=== PATIENT | male | born 1965 | race Caucasian/White ===

== ENCOUNTER 2019-02-09 08:09 | Day surgery (SDC) | payer OTHER, SELFPAY ==
--- NOTE | 2019-02-09 | PATH_ITS ---
[facility] Accession Number: [id number] . 01 Material submitted: . PART A: POLYP AT 20CM PART B: BIOPSY AT 15CM . 02 Diagnosis: A. Biopsy, Colon Polyp at 20 cm: Hyperplastic polyp involving single biopsy fragment. . B. Biopsy, Colon Polyp at 15 cm: Hyperplastic polyp. MRV/02/10/2019 . 02 Electronically signed: . Maykel Gutierrez MD, Pathologist NPI- [id number] . 01 Gross description: . Part A: POLYP AT 20CM: Received in formalin are 2 fragment(s) of brandon, soft tissue measuring 0.3 x 0.3 x 0.1 cm to 0.5 x 0.5 x 0.4 cm which is entirely submitted and submitted entirely in 1 cassette(s) Part B: BIOPSY AT 15CM: Received in formalin is 1 fragment(s) of brandon, soft tissue measuring 0.4 x 0.4 x 0.3 cm which is entirely submitted and submitted entirely in 1 cassette(s) /DMC /DMC . 02 Pathologist provided ICD-10: K62.1 . 02 CPT . 088966, [id number] Performed at: 01 [facility] [address] [facility], [place], [place] [id number] MD Andrew Luther MD Phone: [phone] Performed at: 02 [facility] [address] [place], [place] [id number] MD Elizabeth Osei MD Phone: [phone]
[2019-02-09 08:29] VITALS: BMI 33.3
[2019-02-09 08:37] VITALS: BP 128/86; PULSE 80; RESP 20; TEMP 37; O2SAT 97
--- NOTE | 2019-02-09 10:20 | PM.HP.1 ---
History of Present Illness Date Patient Seen: 02/09/19 Time Patient Seen: 10:20 Chief complaint: 92295 SCREENING COLONOSCOPY Narrative: Very pleasant 53-year-old gentleman who presents for his 1st screening colonoscopy. He denies any problems or symptoms related to function of his GI tract. He says he needs colonoscopy as part of a health maintenance program. Patient History Social History household members: spouse Family & Social History Social History: household members spouse Meds Home Medications Medication Instructions Recorded Confirmed Type ASCORBIC ACID (VITAMIN C) 500 mg PO Q DAY #0 03/21/12 02/09/19 History CA PANTOTHENATE/FOLIC ACID/VIT 1 tab PO QDAY #0 03/21/12 02/09/19 History (MULTIVITAMIN) COENZYME Q10 (COQ10) 150 mg PO Q DAY #0 03/21/12 02/09/19 History Glucosamine Sulfate (#GLUCOSAMINE) 500 mg PO Q DAY #0 03/21/12 02/09/19 History VITAMIN D (Vitamin D3) 2,000 unit PO QDAY #0 03/21/12 02/09/19 History Levoxyl 200 mcg PO DAILY 02/09/19 02/09/19 History losartan 50 mg PO BEDTIME 02/09/19 02/09/19 History Allergies Allergy/AdvReac Type Severity Reaction Status Date / Time No Known Drug Allergies Allergy Verified 02/09/19 08:45 Review of Systems Review of Systems All systems reviewed & are unremarkable except as noted in HPI and below Exam Vital Signs (past 8 hours): - 02/09/19 08:37 Temperature 98.6 F Pulse Rate 80 Respiratory Rate 20 Blood Pressure 128/86 Pulse Oximetry 97 Oxygen Delivery Method Room Air Narrative Exam Narrative: Very pleasant gentleman in no distress HEENT: Normocephalic and atraumatic, pupils equal round reactive to light accommodation with anicteric sclera Lungs: Clear auscultation bilaterally Heart: Regular rate and rhythm Abdomen: Soft, rotund, active bowel sounds Extremities: Warm and well perfused and without edema Assessment & Plan Assessment & Plan narrative: 1 volt 53-year-old man here for his 1st screening colonoscopy. We discussed the risks and benefits of the procedure the patient expressed a desire to complete it today. He is ASA 2 due to his history of mild hypertension and obesity with a BMI of 33
[2019-02-09] MEDS: MIDAZOLAM 5 MG/5 ML VIAL IV (10:29)
[2019-02-09] MEDS: fentaNYL 250 MCG/5 ML INJ IV (10:31)
--- NOTE | 2019-02-09 10:46 | P.OP_ITS ---
Operative Date/Time/Diagnoses Date of procedure: 02/09/19 Time of procedure: 10:43 Pre-op diagnosis: Screening Post-op diagnosis: same Procedure & Clinicians Procedure: Colonoscopy to the cecum with polypectomy x2 Same procedure as scheduled: Yes Indications: No prior colonoscopy Surgeon: Mai Arteaga Anesthesia Type: Sedation (Versed 9 mg, fentanyl 250 micro g) Operative Notes Findings: 1. Excellent prep 2. 5 mm polyp at 20 cm from the anal verge removed with snare and cautery 3. 1-2 mm polyp at 15 cm from the anal verge removed with cold forceps 4. Minimal diverticulosis with scattered small pockets limited to the sigmoid region 5. Grade 1-2 internal hemorrhoids 6. Otherwise normal mucosa Closure Type: not applicable Specimen(s): other (1.-polyp at 20 cm removed with snare cautery; 2-polyp at 15 cm removed with cold forceps) Estimated Blood Loss (mL): 1 Procedure in detail: After obtaining informed consent, the patient was brought to the GI suite and placed in the left lateral decubitus position on the examination table. After placement of appropriate monitors, the patient was gi dulce incremental doses of Versed and Fentanyl until an appropriate level of sedation was achieved. A time out was held per SCOAP protocol. A digital rectal examination was performed and did not reveal any masses or obstructing lesions. The colonoscope was gently passed into the patient's anus and the entire colon navigated to the level of the cecum with minimal difficulty. Once in the cecum, the scope was withdrawn being sure to go before and beyond all mucosal folds and prominences and get an excellent examination. The findings are noted above. At the level of the rectal vault, the scope was retroflexed and the internal anal canal was examined. The scope was straightened and air aspirated from the colon. The instrument was removed from the patient's body and the procedure was concluded. The patient was allowed to awaken from sedation without difficulty and taken to the post-anesthesia care unit in good condition. Total sedation time was 21 minutes Total withdrawal time was 11 minutes 40 seconds Complications: none Condition: stable Disposition: PACU Plan for aftercare: 1. Discharge to home 2. Plan for next colonoscopy in 5 years or as clinically indicated 3. We will contact you with pathology results and any additional recommendations
[2019-02-09 10:47] VITALS: BP 106/72; PULSE 77; RESP 12; TEMP 36.8; O2SAT 99
[2019-02-09 10:52] VITALS: BP 115/83; PULSE 80; RESP 11; O2SAT 98
[2019-02-09 11:00] VITALS: BP 122/75; PULSE 74; RESP 15; TEMP 36.4; O2SAT 98
[2019-02-09 11:06] VITALS: BP 114/76; PULSE 64; RESP 16; TEMP 36.3; O2SAT 99
== END 2019-02-09 11:16 | disposition home or self-care (01) ==
PROVIDERS: Family Provider Family Medicine; PCP Family Medicine; Visit Provider Surgery
PROC: 0DJD8ZZ Inspection of Lower Intestinal Tract, Via Natural or Artificial Opening Endoscopic (ICD-10-PCS; CPT 45378; principal; 2019-02-09 09:45)
DX: Z12.11 Encounter for screening for malignant neoplasm of colon (principal); K57.30 Diverticulosis of large intestine without perforation or abscess without bleeding; K64.1 Second degree hemorrhoids; D12.6 Benign neoplasm of colon, unspecified; I10 Essential (primary) hypertension; E66.9 Obesity, unspecified; Z68.33 Body mass index [BMI] 33.0-33.9, adult
CPT/HCPCS: 45385; 45380; 99152; J2250; J3010

== ENCOUNTER → 2022-09-18 14:36 | Outpatient (CLI) | payer OTHER, SELFPAY ==
--- NOTE | 2022-09-18 14:37 | DI.CT.S_ITS ---
PROCEDURE: CT SOFT TISSUE NECK W CON INDICATIONS: LEFT cervical lymphadenopathy TECHNIQUE: Helical axial CT of the neck was obtained after intravenous contrast injection and reformatted in multiple planes. Radiation dose reduction was achieved utilizing automated exposure control and/or weight-based dosing. COMPARISON: None. FINDINGS: Skull Base: The visualized intracranial contents, skull, and orbits are unremarkable. 1.4 cm right maxillary sinus retention cyst. Pharynx and Larynx: The nasopharyngeal airway is patent and midline. Parapharyngeal soft tissues including palatine tonsils and base of the tongue are normal. Retropharyngeal space unremarkable. Normal appearance of the false and true vocal cords. Muscles and Fascial Planes: Fascial planes are well maintained. No abscess or mass lesion. Lymph Nodes: Left level 2A lymph node corresponds with the palpable abnormality measuring 1.5 cm in short axis 3.4 cm in length additional smaller nonenlarged nodes are noted in the deep cervical chains bilaterally. Vasculature: Unremarkable. Submandibular and Parotid Glands: Normal in size and attenuation. Thyroid: Unremarkable. No enlarged or calcified nodules. Bones: No acute fracture. No osteolytic or blastic lesion is evident. Normal bone mineralization. Lung Apices: The visualized lung apices are clear. IMPRESSION: 1. Left level 2A adenopathy corresponds with palpable abnormality. Node would be amendable to ultrasound guided percutaneous biopsy. Approved by: Peter Osorio M.D. on 09/18/2022 at 16:45
== END ==
PROVIDERS: Family Provider Family Medicine; PCP Family Medicine; Referring Provider Surgery; Visit Provider Surgery
DX: R59.0 Localized enlarged lymph nodes (principal); J34.1 Cyst and mucocele of nose and nasal sinus
CPT/HCPCS: 70491; Q9967

== ENCOUNTER → 2022-11-10 07:59 | Outpatient (CLI) | payer OTHER, SELFPAY ==
--- NOTE | 2022-11-10 | PATH_ITS ---
[facility] Accession Number: [id number] No. of containers..01 Tissue . 01 Material submitted: . lymph node - LEFT SUBMANDIBULAR LYMPHNODE . 01 Diagnosis: Left submandibular lymph node, core biopsy: -Core fragments of oncocytic epithelium, bilayered, overlying benign lymphoid tissue, consistent with Warthin tumor. -Negative for atypia and malignancy. [facility] 11/12/2022 1435 Local . 01 Electronically signed: . Antonio Chamorro MD, Pathologist NPI- [id number] . 01 Gross description: . LEFT SUBMANDIBULAR LYMPHNODE: Received in formalin are 2 fragment(s) of brandon, soft tissue measuring 0.3 x 0.1 x 0.1 cm to 0.4 x 0.1 x 0.1 cm submitted entirely in 1 cassette(s) /[facility] 11/10/2022 1927 Local . 01 Pathologist provided ICD-10: D11.9 . 01 CPT . 807830 Specimen Comment: A courtesy copy of this report has been sent to [phone] Performed at: 01 [facility] [address] [place] [address], [place], [place] [id number] MD Andrew Luther MD Phone: [phone]
--- NOTE | 2022-11-10 08:00 | DI.US.S_ITS ---
PROCEDURE: US BIOPSY LYMPH NODE INDICATIONS: LEFT SUBMANDIBULAR LYMPHADENOPATHY TECHNIQUE: The indications, alternatives, benefits, risks, and complications of the procedure were explained to the patient. Written informed consent was obtained and placed in the chart. Real-time sonography was utilized to choose the site for percutaneous lymph node sampling. The skin was prepped and draped in the usual sterile fashion. 1% lidocaine was infiltrated down to the site of interest. A coaxial needle was then advanced into the site of interest under direct sonographic visualization. A biopsy apparatus was then utilized, and core biopsies were obtained. The needle was then withdrawn; a bandage was applied to the biopsy site. COMPARISON: None. FINDINGS: Biopsy site(s): Left neck, retromandibular region Needle: MetaCDN biopsy needle set. 20 gauge Number of passes: 5 Medications: 1% lidocaine for local anaesthesia. Complications: None. IMPRESSION: Successful ultrasound-guided left cervical chain lymph node biopsy, with pathology results pending. Dictated by: Arjun Bee M.D. on 11/10/2022 at 19:23 Approved by: Arjun Bee M.D. on 11/10/2022 at 19:24
== END ==
PROVIDERS: Family Provider Family Medicine; PCP Family Medicine; Referring Provider Surgery; Visit Provider Surgery
DX: R59.0 Localized enlarged lymph nodes
CPT/HCPCS: 38505; 76942

== ENCOUNTER → 2024-09-20 13:52 | Outpatient (CLI) | payer OTHER, SELFPAY ==
--- NOTE | 2024-09-20 13:55 | DI.US.S_ITS ---
PROCEDURE: US ABDOMEN LIMITED INDICATIONS: INFLAMMATION OF VAS DEFERENS TECHNIQUE: Real-time focused scanning was performed of the abdomen, with image documentation. COMPARISON: None. FINDINGS: Scan is performed of the left inguinal canal. At this site, there is an apparent fat containing inguinal hernia, without abnormal vascularity. This measures 4.7 x 1.6 x 2.3 cm. This appears compressible with probe pressure. IMPRESSION: Apparent fat containing left inguinal hernia. Surgical consultation is recommended. If clinically appropriate, a CT through the region with at least IV contrast may also be helpful for further evaluation. Dictated by: Calin Hoffman M.D. on 09/20/2024 at 15:11 Approved by: Calin Hoffman M.D. on 09/20/2024 at 15:12
== END ==
LOC: US 13:54
PROVIDERS: Family Provider Family Medicine; PCP Family Medicine; Referring Provider Family Medicine; Visit Provider Family Medicine
DX: N49.1 Inflammatory disorders of spermatic cord, tunica vaginalis and vas deferens (principal); K40.90 Unilateral inguinal hernia, without obstruction or gangrene, not specified as recurrent
CPT/HCPCS: 76705

== ENCOUNTER → 2024-09-27 06:45 | Outpatient (CLI) | payer OTHER, SELFPAY ==
--- NOTE | 2024-09-27 06:47 | DI.RAD.S_ITS ---
PROCEDURE: XR KNEE RT 3V INDICATIONS: KNEE PAIN TECHNIQUE: 3 views of the knee were acquired. COMPARISON: None. FINDINGS: Bones: No fractures or dislocations. No suspicious bony lesions. Tricompartmental joint space narrowing with associated osteophytosis. Soft tissues: Moderate joint effusion. No suspicious soft tissue calcifications. IMPRESSION: Wcuc-hw-leigjlof tricompartmental osteoarthritis. Kellgren-Adan Grade 2. Moderate knee joint effusion. Dictated by: Jamie Temple M.D. on 09/27/2024 at 9:48 Approved by: Jamie Temple M.D. on 09/27/2024 at 9:50
--- NOTE | 2024-09-27 06:48 | DI.RAD.S_ITS ---
PROCEDURE: XR HIP W PEL IF DONE RT 2V INDICATIONS: HIP PAIN TECHNIQUE: 2 views of the hip were acquired. COMPARISON: None. FINDINGS: Bones: No fractures or dislocations. No suspicious bony lesions. The visualized pelvic ring appears intact. Mild nonuniform joint space narrowing with osteophytic lipping of the acetabulum. Soft tissues: No suspicious soft tissue calcifications or masses. IMPRESSION: No acute bony abnormality. Mild right hip osteoarthritis. Kellgren-Adan Grade 2. Dictated by: Jamie Temple M.D. on 09/27/2024 at 9:46 Approved by: Jamie Temple M.D. on 09/27/2024 at 9:48
--- NOTE | 2024-09-27 07:07 | DI.CT.S_ITS ---
PROCEDURE: CT LUNG LOW DOSE SCREENING INDICATIONS: NICOTINE DEPENDENCE,CIGARETTES TECHNIQUE: Noncontrast 2.0-2.5 mm thick sections acquired from the pulmonary apices to the posterior costophrenic angles. 7 mm thick axial MIP, and 5 mm coronal and sagittal reformats were then acquired. For radiation dose reduction, the following was used: automated exposure control, adjustment of mA and/or kV according to patient size. COMPARISON: None. FINDINGS: Image quality: Diagnostic. Lower Neck: No enlarged lymph nodes. Thyroid: Absent. Axillae: No enlarged lymph nodes. Chest Wall: Unremarkable. Bones: Unremarkable. Lungs and Pleura: No pneumothorax or pleural effusions. A few solid pulmonary micro nodules period index nodule measures 4 x 5 millimeters in the right middle lobe (series 3, image 191). Moderate centrilobular and mild paraseptal emphysema. Heart: Heart size is normal. No pericardial effusion. Thoracic Vessels: The aorta and pulmonary arteries demonstrate normal size. Mediastinum and Bertha: No enlarged lymph nodes. Esophagus: No wall thickening. No hiatal hernia. Upper Abdomen: 3-4 millimeter stone in the superior calyx of the left kidney. Calcified granuloma of the spleen. IMPRESSION: No suspicious pulmonary nodules. LUNG-RADS 2; continued annual screening, if eligible. Clinically Significant Non-pulmonary Findings: None. Dictated by: Jamie Temple M.D. on 09/27/2024 at 9:35 Approved by: Jamie Temple M.D. on 09/27/2024 at 9:45
== END ==
PROVIDERS: Family Provider Family Medicine; PCP Family Medicine; Referring Provider Family Medicine; Visit Provider Family Medicine
DX: Z12.2 Encounter for screening for malignant neoplasm of respiratory organs (principal); F17.210 Nicotine dependence, cigarettes, uncomplicated; M16.11 Unilateral primary osteoarthritis, right hip; M17.11 Unilateral primary osteoarthritis, right knee; M25.461 Effusion, right knee; M25.551 Pain in right hip; M25.561 Pain in right knee
CPT/HCPCS: 71271; 73502; 73562

== ENCOUNTER 2024-11-28 06:06 | Day surgery (SDC) | payer OTHER, SELFPAY ==
[2024-10-30 14:01] VITALS: BMI 29.0
[2024-11-28] MEDS: LACTATED RINGERS 1,000 ML 42 ML IV (06:42)
[2024-11-28] MEDS: ACETAMINOPHEN 325 MG TABLET 975 MG PO (06:44)
[2024-11-28 06:52] VITALS: BP 139/83; PULSE 70; RESP 17; TEMP 36.8; O2SAT 96; BMI 28.8
--- NOTE | 2024-11-28 07:40 | PM.HP.IH.1 ---
History of Present Illness History of Present Illness Date Patient Seen: 11/28/24 Time Patient Seen: 07:40 Chief complaint: Lap franklin inguinal hernia repair Narrative: Julio C is a 59 year old man with bilateral inguinal hernias, symptomatic on the left. See office note from Dr. Albright for details dated 10/19/24. [facility] Medical History (Updated 10/19/24 @ 12:32 by Avi Albright MD) Thyroid cancer Hyperlipemia Hypertension Surgical History (Updated 10/30/24 @ 14:04 by Savannah Gupta RN) Hx of colonoscopy H/O thyroidectomy Hx of appendectomy Social History marital status: household members: spouse lives independently: Yes occupational status: previously employed Smoking Status: Current every day smoker alcohol intake: current Meds Home Medications and Allergies Home Medications Medication Instructions Recorded Confirmed Type Levoxyl 200 mcg PO DAILY 02/09/19 11/28/24 History losartan 50 mg PO BEDTIME 02/09/19 11/28/24 History atorvastatin 20 mg tablet 20 mg PO DAILY 09/11/22 11/28/24 History Allergies Allergy/AdvReac Type Severity Reaction Status Date / Time No Known Drug Allergies Allergy Verified 11/28/24 06:41 Exam Vital Signs (past 8 hours): - 11/28/24 06:52 Temperature 98.3 F Pulse Rate 70 Respiratory Rate 17 Blood Pressure 139/83 Pulse Oximetry 96 Oxygen Delivery Method Room Air Oxygen Delivery Method Room Air Const General: healthy appearing and No acute distress Assessment & Plan Assessment and plan (1) Bilateral inguinal hernia: Qualifiers: Obstruction and gangrene presence: without obstruction or gangrene Recurrence: non-recurrent Qualified Code(s): K40.20 - Bilateral inguinal hernia, without obstruction or gangrene, not specified as recurrent Status: Acute Plan Laparoscopic bilateral inguinal hernia repair with mesh Time-Based Coding :: [TOTAL MINUTES] spent with patient and on the chart (including review of chart, obtaining history, exam, reviewing outside data, placing orders, documenting exam and treatment plan, and counseling patient) on [DATE]. PROFEE Extracorporeal Technician Document charge(s): No
[2024-11-28] MEDS: CEFAZOLIN 2 GM/100 ML PREMIX 100 ML IV (08:03)
--- NOTE | 2024-11-28 08:24 | SUR.OPER ---
Supine on padded OR bed with pink pad, head on pillow, arms padded and tucked at sides, legs uncrossed, safety belt at thigh, tape over blanket over lower legs .
[2024-11-28] MEDS: BUPIVACAINE 0.5% W/ EPI (PF) 30 ML VIAL INJ (09:03)
--- NOTE | 2024-11-28 09:53 | PM.OP.1 ---
Operative Date/Time/Diagnoses Date of procedure: 11/28/24 Time of procedure: 09:53 Pre-op diagnosis: Bilateral inguinal hernias and umbilical hernia Post-op diagnosis: other (Left indirect inguinal hernia and umbilical hernia) Procedure & Clinicians Procedure: Laparoscopic left inguinal hernia repair with mesh Open umbilical hernia primary repair Same procedure as scheduled: Yes Surgeon: Eliseo Araujo Anesthesia Type: General Operative Notes Procedure in detail: The patient was given preoperative antibiotics. The patient was brought to the operating room, placed on the table in the supine position with the arms tucked and general anesthesia was induced. The abdomen was prepped and draped in the usual fashion. A time-out was performed. A 1 cm infraumbilical incision was created and dissection was carried down to the fascia. We found a small 1 cm umbilical hernia containing fat. We opened the hernia sac. A Peon clamp was used to jerome the peritoneum. The Lori port was placed and the abdomen was insufflated to 15 mmHg. The camera was inserted, there was no evidence of any injury from the entry. There was a left indirect inguinal hernia. No right inguinal hernia was seen. 5 mm ports were placed under direct vision in the mid left and mid right abdomen. The patient was positioned in Trendelenburg. We created left peritoneal flap. The peritoneum was dissected off the left cord structures and the Yuval's ligament was exposed. A large left Bard mesh was brought in and placed over the defect with the medial edge against Yuval's ligament. We then closed the peritoneal flap with a running 3-0 barbed suture. We took one last look around the abdomen and saw no other abnormalities. The suture was removed and accounted for. The 5 mm ports were removed under direct vision. The abdomen was desufflated. The Lori port was removed. Additional local was injected into the fascia and the fascial incision was closed with 2 interrupted 0 ethibond figure of 8 sutures. The skin incisions were closed with 4 Monocryl, Steri-Strips and Band-Aids. Post-operative Condition: stable Disposition: PACU
[2024-11-28 09:56] VITALS: BP 177/103; PULSE 75; RESP 20; TEMP 36.3; O2SAT 96
[2024-11-28 10:00] VITALS: BP 150/94; PULSE 76; RESP 15; TEMP 36.3; O2SAT 95
[2024-11-28 10:05] VITALS: BP 152/95; PULSE 75; RESP 15; TEMP 36.4; O2SAT 97
[2024-11-28 10:10] VITALS: BP 159/94; PULSE 70; RESP 13; TEMP 36.3; O2SAT 97
[2024-11-28 10:38] VITALS: BP 145/84; PULSE 65; RESP 16; TEMP 36.2; O2SAT 99
== END 2024-11-28 10:45 | disposition home or self-care (01) ==
PROVIDERS: Family Provider Family Medicine; PCP Family Medicine; Referring Provider Surgery; Visit Provider Surgery
PROC: 0YQ64ZZ Repair Left Inguinal Region, Percutaneous Endoscopic Approach (ICD-10-PCS; CPT 49650; principal; 2024-11-28 07:45)
DX: K40.90 Unilateral inguinal hernia, without obstruction or gangrene, not specified as recurrent (principal); K42.9 Umbilical hernia without obstruction or gangrene; I10 Essential (primary) hypertension; E78.5 Hyperlipidemia, unspecified; G47.33 Obstructive sleep apnea (adult) (pediatric); F17.210 Nicotine dependence, cigarettes, uncomplicated; Z85.850 Personal history of malignant neoplasm of thyroid
CPT/HCPCS: 49650; 49591; J0690; J1100; J2405; J2704; J3010